=== PATIENT | male | born 1955 | race Caucasian/White ===

== ENCOUNTER → 2024-09-05 | Outpatient (CLI) | payer MEDICARE, SELFPAY ==
--- NOTE | 2024-09-05 14:57 | ECHOD_ITS ---
Reason For Study Reason For Study: PROSTHETIC HEART VALVE Procedure This was a 2D Doppler, Color Flow transthoracic echocardiogram. Exam performed in department. Left Ventricle Normal LV size. Moderate concentric left ventricular hypertrophy. The left ventricular ejection fraction is 70 %. No regional wall motion abnormalities noted. Right Ventricle Normal RV size. Normal systolic function. Atria Normal left atrium. Normal right atrium. Mitral Valve Normal mitral valve. Tricuspid Valve Normal tricuspid valve. Aortic Valve Peak aortic valve gradient 17 mmHg. Mean aortic valve gradient 8 mmHg. Mild (1+) aortic valve insufficiency. Bioprosthetic aortic valve. Pulmonic Valve Normal pulmonic valve. Great Vessels Normal aortic root. The pulmonary artery is normal size. Inferior vena cava collapse with respiration. Pericardium/Pleural No pericardial effusion. MMode/2D Measurements & Calculations LVIDd: 3.8 cm IVSd: 1.7 cm LVOT diam: 2.0 cm LVIDs: 2.6 cm LVPWd: 1.6 cm LVOT area: 3.2 cm2 FS: 31.3 % LAV(MOD-bp): 50.8 ml LVAd ap4: 31.3 cm2 SV(MOD-sp4): 63.9 ml LAV(MOD-bp) Indexed: 22.5 ml/m2 LVLd ap4: 8.8 cm SI(MOD-sp4): 28.4 ml/m2 LAV(MOD-sp2): 44.9 ml EDV(MOD-sp4): 94.7 ml LAV(MOD-sp4): 56.9 ml EDV(sp4-el): 94.4 ml LVAs ap4: 14.9 cm2 LVLs ap4: 6.8 cm ESV(MOD-sp4): 30.8 ml ESV(sp4-el): 27.6 ml EF(MOD-sp4): 67.5 % EF(sp4-el): 70.8 % SV(sp4-el): 66.8 ml LA A4 area: 19.2 cm2 RA A4 area: 17.4 cm2 Time Measurements MV dec time: 0.29 sec Doppler Measurements & Calculations MV E max reilly: 106.0 cm/sec Lat Peak E' Reilly: 11.0 cm/sec Med Peak E' Reilly: 7.9 cm/sec MV A max reilly: 102.0 cm/sec E/E' lat: 9.7 E/E' med: 13.5 MV E/A: 1.0 MV V2 max: 119.9 cm/sec Ao V2 max: 207.4 cm/sec MV max P.8 mmHg MV dec slope: 367.3 cm/sec2 Ao max P.5 mmHg MV V2 mean: 73.1 cm/sec Ao V2 mean: 132.2 cm/sec MV mean P.4 mmHg Ao mean P.8 mmHg MV V2 VTI: 42.3 cm Ao V2 VTI: 50.0 cm AV (velocity ratio): 0.64 MVA(VTI): 2.5 cm2 MICHELA(I,D): 2.1 cm2 MICHELA(V,D): 2.3 cm2 LV V1 max: 145.3 cm/sec SV(LVOT): 103.6 ml PA V2 max: 116.7 cm/sec LV V1 max P.5 mmHg PA V2 mean: 78.0 cm/sec LV V1 mean P.0 mmHg LV V1 mean: 105.6 cm/sec LV V1 VTI: 31.9 cm ECHO/Echo Complete Interpretation Summary Normal LV size. Moderate concentric left ventricular hypertrophy. The left ventricular ejection fraction is 70 %. Bioprosthetic aortic valve. Mean aortic valve gradient 8 mmHg. Ordering Physician: Shahriar Valdez Referring Physician: Shahriar Valdez Performed By: Avril Feliciano RCS
== END | disposition home or self-care (01) ==
LOC: CVS 14:55
PROVIDERS: PCP Internal Medicine; Referring Provider Nurse Practitioner Family; Visit Provider Nurse Practitioner Family
DX: Z95.2 Presence of prosthetic heart valve (principal)
CPT/HCPCS: 93306